=== PATIENT | male | born 1970 | race Caucasian/White ===

== ENCOUNTER → 2019-08-10 | Outpatient (CLI) | payer OTHER ==
[2019-08-10 13:49] VITALS: BP 108/72; PULSE 64; RESP 16
--- NOTE | 2019-08-10 14:33 | P.PAINCN ---
History of Present Illness - Reason for Consult Consult date: 08/10/19 - History of Present Illness This is the initial consultation visit for this 48 years old male with a chronic history of severe right sided neck pain with radiation to the right upper extremity started 1 year ago without any initiating event, he reported that the pain started in his right humerus area and radiated towards his right shoulder and into with his right neck, and he reported that the intensity of the pain fluctuates during the daytime, and is increased with any activity, have any shoulder movement to the pain, the symptoms increased with any use of his right upper extremity, patient tried multiple medications without any benefit,, he tried Cymbalta , Lyrica Motrin and ,Aleve, naproxen ,and prednisone [place], none of the medication helped his pain, he tried physical therapy Practice without any benefit, He denies any motor or sensory deficit, he denies any fever or night sweats, he denies any change in bowel movement or urination Past Medical History History of Any Multi-Drug Resistant Organisms: None Reported Past Surgical History: Hernia Repair Additional Past Surgical History / Comment(s): Finger surgery - reattachment Past Anesthesia/Blood Transfusion Reactions: No Reported Reaction Smoking Status: Current every day smoker Medications and Allergies Home Medications Medication Instructions Recorded Confirmed Type No Known Home Medications 08/10/19 08/10/19 History Allergies Allergy/AdvReac Type Severity Reaction Status Date / Time Penicillins Allergy Anaphylaxis Verified 08/10/19 13:26 Physical Exam Vitals: Vital Signs Pulse Resp BP Pulse Ox 08/10/19 13:55 64 16 108/72 99 08/10/19 13:27 64 16 108/72 99 Intake and Output 08/09/19 08/10/19 08/10/19 22:59 06:59 14:59 Other: Weight 79.379 kg REVIEW OF ORGAN SYSTEMS: CONSTITUTIONAL: No fevers or chills. No recent weight loss. EYES: denies troubles with vision. HEENT: No difficulties with hearing. No nosebleeds. No difficulty swallowing. RESPIRATORY: Denies any troubles with breathing or dyspnea on exertion. CARDIOVASCULAR: Denies any chest pain, palpitations, or recent heart attacks. GASTROINTESTINAL: Denies fatty food intolerance. Has change in bowel habits and gas bloat. GENITOURINARY: Denies any blood in urine. Has increased urinary frequency. NEUROLOGICAL: + numbness and tingling along the distal extremities. No seizure disorders or headaches. MUSCULOSKELETAL: Has neck pain. Right upper extremity pain SKIN:no skin cancer. No rash. PSYCHIATRIC: Denies current depression or suicidal thoughts. ENDOCRINE: Denies current thyroid disorders. Denies any blood sugar glucose intolerance. HEME/LYMPHATIC: Denies any lumps and bumps around the neck. History of deep venous thrombosis. ALLERGY/IMMUNOLOGY: No immunoglobulin therapy. No immune deficiencies. BREAST: Denies current breast lumps, pain or nipple discharge. Physical Examinations : Constitutiona : Cooperative , not in acute distress . HEENT : nech : supple , no Lymphadenopathy , normal thyroid size . : eyes no ptosis , no icterus, no photophobia . : ENT normal of hearing , normal oropharynx , no Thrush . Respiratory : Chest clear to auscultations Bilaterally , no wheezing , no Rhonchi . Cardiovascula : regular rate and rhythem , S1 , S2 , no S3 , no S4. Gastrointestina : abdomen soft no tenderness , bowel sounds , no organomegally . Genitourinary : [place] . neurologic : Cranial nerve II to XII intact , no focal neurological deffecit . psychatric : alert , oriented X 3 , appropriate affect , intact judgment and insight . Lymphatic : no Lymphadenopathy . musculoskeltal : Cervical Spine motor stregnth in the deltoid and biceps, normal right side , normal Left side motor stregnth biceps and the wrist extensors normal right side ,normal left side . motor stregnth in the triceps muscle . normal Right side , normal Left side deep tendon reflexes= normal at the biceps , normal at Brachioradialis , normal at triceps. cervical facet loading test: Positive Bilaterally Tenderness over the cervical paravertebral muscles Neck distraction test= positive on the right side Ruddy sign= positive on the right side External rotation of the right shoulder Lumber spine moter stegnth lower extremities ,thigh and legs 5/5 Right side , 5/5 Left side Results Comments: MRI of the cervical spine done at some MRI= C5 6 facet hypertrophic changes and neuroforaminal narrowing at C6 7 there is disc osteophyte complex with ventral thecal sac effacement and there is facet joint hypertrophy and there is right neural foraminal narrowing Assessment and Plan Plan: Assessment and plan=1-cervical radiculopathy. 2-cervical foraminal stenosis. 3-cervical spondylosis with cervical facet arthropathy. 4-right shoulder arthralgia. Patient will be good candidate to have cervical epidural steroid injection at C7-T1 (right paramedian approach ) Procedure risk and benefits and alternatives discussed with the patient he agreed with proceeding Time with Patient: Greater than 30 PQRS Measure Charge Sheet Measure #130: Documentation of Current Meds in Medical Chart: Patient's medications documented in chart Measure #226: Tobacco Use: Screen & Cessation Intervention: Pt screened for tobacco use AND intervention given Measure #111: Pneumonia Vaccination: Pneumococcal vaccine NOT administered or previously given Measure #47: Advance Care Plan: Advance care planning discussed & documented, pt chose/unable to give Measure #412: Opioid Treatment Agreement: No documentation of signed opioid treatment agreement Measure #408: Opioid Therapy Follow-up Evaluation: Patient had NO f/u eval minimum every 3 months during opioid therapy Measure #317: Preventitive Care & Scrn High Bld Press & F/U: Normal blood pressure, f/u not required Measure #128: Body Mass Index (BMI) Screening & Follow-up: BMI documented ABOVE normal parameters - f/u documented Measure #131: Pain Assessment & Follow-up: Pain positive & plan documented, Follow-up scheduled Measure #431: Unhealthy Alcohol Use Preventative Care & Scrn: Patient not identified as an unhealthy alcohol user PQRS Narrative: Smoking Status Current every day smoker Blood Pressure 108/72 Pain Intensity [Right 6 Posterior Neck] Pain Intensity [Right Shoulder 3 ] Scale Used Numeric (1 - 10) Hx Alcohol Use (MH) No Home Medications: Ambulatory Orders No Known Home Medications 08/10/19
== END | disposition home or self-care (01) ==
LOC: PNWHC3 13:17
PROVIDERS: ATTEND Specialist
DX: M48.02 Spinal stenosis, cervical region (principal); M47.22 Other spondylosis with radiculopathy, cervical region; M46.92 Unspecified inflammatory spondylopathy, cervical region; M25.511 Pain in right shoulder; F17.200 Nicotine dependence, unspecified, uncomplicated; Z88.0 Allergy status to penicillin
CPT/HCPCS: 99211

== ENCOUNTER 2019-08-17 09:37 | Day surgery (SDC) | payer OTHER ==
[2019-08-13 15:00] VITALS: BMI 26.6
[~2019-08-17 09:37] MED LIST: LACTATED RINGERS 1,000 ML IV SCH
[2019-08-17 11:00] VITALS: TEMP 98.3
[2019-08-17] MEDS ORDERED: LIDOCAINE 1% 20 ML VIAL (10MG/ML) FOR IV START INTRADERMA ONE (11:04)
[2019-08-17] MEDS ORDERED: IOPAMIDOL M200 10 ML VIAL ONE (11:44)
[2019-08-17] MEDS ORDERED: fentaNYL (PF) 50 MCG/ML 2 ML AMP ONE (11:44)
[2019-08-17] MEDS ORDERED: DEXAMETHASONE SOD PHOSPHATE 10 MG/ML 1 ML VIAL ONE (11:44)
[2019-08-17] MEDS ORDERED: MIDAZOLAM 2 MG/2 ML VIAL ONE (11:44)
--- NOTE | 2019-08-17 11:55 | P.PCN ---
Date of Procedure: 08/17/19 Procedure(s) Performed: Diagnosis: Cervical radiculopathy Cervical degenerative disc disease POSTOPERATIVE DIAGNOSIS: Diagnoses: Cervical radiculopathy Cervical degenerative disc disease PROCEDURE Cervical Epidural steroid injection under fluoroscopic guidance at the C7-T1 interspace using right paramedian approach Cervical epidurogram ANESTHESIA: Local with 1% lidocaine 3 ml and IV sedation with Versed and fentanyl, sedation time 11 minutes Fluoroscopy was used for the procedure and images were saved in the radiology portion of the chart. EBL: Minimal PROCEDURE INDICATION: The patient presents with cervical radicular symptoms unresponsive to conservative treatment. This is the first cervical epidural steroid injection. PROCEDURE DESCRIPTION / TECHNIQUE: The patient was seen and identified in the preoperative area. Risks, benefits, complications including but not limited to infections ,bleeding ,allergic reaction to the medications ,nerve damage and incomplete pain relief, and alternatives were discussed with the patient. The patient agreed to proceed with the procedure and signed the consent. IV was started, and vital signs were stable. Patient was taken to the OR and time out was completed. The patient was placed in the prone position on procedure table and a pillow was placed under the chest area. The cervical area was prepped and draped in the usual sterile fashion. Conscious sedation was used during the procedure to decrease patients anxiety. Vital signs was monitored during the entire procedure. Using anterior-posterior fluoroscopy, the C7-T1 interlaminar space was identified and the skin over this site was marked and then infiltrated with 1% lidocaine subcutaneously. Subsequently, a 20-gauge Tuohy epidural needle was inserted and advanced toward the epidural space using the loss of resistance technique and guided by AP and 50 oblique fluoroscopy. The correct needle position in the epidural space was verified. After negative aspiration for blood and CSF and in the absence of paresthesias, Isovue 200 2 mL's was injected under live fluoroscopy with good epidural spread. After negative aspiration, a 5 ml mixture containing 10 mg of dexamethasone, 3 mL of preservative free normal saline and 1 mL of 1% lidocaine was injected. Needle was withdrawn intact, skin was cleansed, and bandages were applied. COMPLICATIONS: None DISPOSITION / PLANS: The patient was placed in a supine position and transferred to the recovery area in a stable condition for observation. There was no evidence of lower extremity motor or sensory deficit after the procedure. Patient was discharged from the recovery room after meeting discharge criteria. Home discharge instructions were given to the patient by the staff. The patient will be scheduled a repeat procedure in 2-4 weeks.
[2019-08-17] MEDS ORDERED: LACTATED RINGERS 1,000 ML IV ONE (12:02)
[2019-08-17] MEDS ORDERED: IV FLUID CONTINUATION 1,000 ML IV ONE (12:02)
--- NOTE | 2019-08-17 12:20 | FL ---
EXAMINATION TYPE: FL guided pain mgmt statistic DATE OF EXAM: 08/17/2019 HISTORY: Pain 7 SEC FL TIME USED CERVICAL EPI
[2019-08-17 12:22] VITALS: BP 100/67; PULSE 49; RESP 14
== END 2019-08-17 12:34 | disposition home or self-care (01) ==
LOC: ORPAIN 09:37
PROVIDERS: ATTEND Anesthesiology
DX: M50.13 Cervical disc disorder with radiculopathy, cervicothoracic region (principal); M47.22 Other spondylosis with radiculopathy, cervical region; M48.03 Spinal stenosis, cervicothoracic region; F17.200 Nicotine dependence, unspecified, uncomplicated; Z98.890 Other specified postprocedural states; Z88.0 Allergy status to penicillin
CPT/HCPCS: 62321; 99152

== ENCOUNTER 2019-08-31 09:17 | Day surgery (SDC) | payer OTHER ==
[2019-08-27 16:12] VITALS: BMI 25.8
[~2019-08-31 09:17] MED LIST changes: +DEXAMETHASONE SOD PHOSPHATE 10 MG/ML 1 ML VIAL ONE; +IOPAMIDOL M200 10 ML VIAL ONE; +MIDAZOLAM 2 MG/2 ML VIAL ONE; +fentaNYL (PF) 50 MCG/ML 2 ML AMP ONE
[2019-08-31 09:37] VITALS: RESP 16; TEMP 97.2
--- NOTE | 2019-08-31 10:07 | P.PCN ---
Date of Procedure: 08/31/19 Procedure(s) Performed: . PROCEDURE 1. Cervical epidural steroid injection under fluoroscopic guidance, C7-T1 (fluoroscopy images available in the radiology department ) 2. Cervical epidurogram. PREOPERATIVE DIAGNOSIS: 1- Cervical Degenerative Disc Diseases 2-cervical spondylosis with cervical Facet arthropathy without myelopathy POSTOPERATIVE DIAGNOSIS: : 1- Cervical Degenerative Disc Diseases , 2-cervical spondylosis with cervical Facet arthropathy without myelopathy ANESTHESIA: Local anesthesia with lidocaine 1 % , and moderate sedation, with Versed 2 mg and Fentanyl 50 mcg. EBL 0 PROCEDURE INDICATION: The patient with neck pain and radiculitis unresponsive to conservative treatment consents for procedure. PROCEDURE DESCRIPTION / TECHNIQUE: The patient was seen and identified in the preoperative area. Risks, benefits, complications, including but not limited to infections ,bleeding , allergic reactions to the medications ,and not complete pain releife, and alternatives were discussed with the patient, the patient agreed to proceed with the procedure and signed the consent. Patient was taken to the OR and time out was completed. The patient was placed in the prone position on the procedure table. A pillow was placed under the patients chest to increase the cervical interlaminar space. The cervical area was prepped and draped in the usual sterile fashion. Vital signs were closely monitored during the procedure. Conscious sedation was used during the procedure to decrease patients anxiety. Using anterior-posterior fluoroscopy, the C7-T1 interlaminar space was identified and the skin over this site was marked and then infiltrated with 1% lidocaine subcutaneously. Subsequently, a 20-gauge 3-1/2-inch Tuohy epidural needle was inserted and advanced toward the epidural space by means of the ``hanging-drop technique and guided by AP and lateral fluoroscopy. The correct needle position in the epidural space was verified with the injection of 2 mL of the water soluble contrast dye Isovue-200 and observing an excellent epidurogram with the epidural spread of the dye, after negative aspiration for blood and CSF and in the absence of paresthesias. Again after negative aspiration, mixture containing 20 mg Dexamethasone and 2 ml of preservative-free normal saline injected and a washout of epidurogram was seen. Needle was withdrawn intact, skin was cleansed, and bandages were applied. Complications= none. Disposition= patient was placed in supine position and transferred to the recovery room area in stable condition and there was no evidence of upper or lower extremity motor or sensory deficit after the procedure patient was discharged from recovery room after discharge criteria met and home discharge instructions was given by the staff and patient will follow with the pain clinic in 2-4 weeks
[2019-08-31] MEDS ORDERED: IV FLUID CONTINUATION 1,000 ML IV ONE (10:11)
--- NOTE | 2019-08-31 10:25 | FL ---
EXAMINATION TYPE: FL guided pain mgmt statistic DATE OF EXAM: 08/31/2019 CLINICAL HISTORY: Neck pain. TECHNIQUE: Fluoroscopy. COMPARISON: None. FINDINGS: Fluoroscopic guidance was provided during pain relief procedure performed by Dr. Bradley . A total of 2 seconds of fluoroscopic time was utilized during the procedure and two spot images ar e acquired. Images acquired shows needle localization of the cervical thoracic junction. IMPRESSION: As Above.
[2019-08-31 10:28] VITALS: BP 109/66; PULSE 53
== END 2019-08-31 10:43 | disposition home or self-care (01) ==
LOC: ORPAIN 09:17
PROVIDERS: ATTEND Specialist
DX: M50.10 Cervical disc disorder with radiculopathy, unspecified cervical region (principal); M47.22 Other spondylosis with radiculopathy, cervical region; F41.9 Anxiety disorder, unspecified; Z88.0 Allergy status to penicillin
CPT/HCPCS: 62321; 99152; J2250; J1100; J3010; Q9966

== ENCOUNTER → 2019-09-24 | Day surgery (SDC) | payer OTHER ==
[2019-09-23 11:02] VITALS: BMI 25.2
[~2019-09-24] MED LIST changes: -DEXAMETHASONE SOD PHOSPHATE 10 MG/ML 1 ML VIAL ONE; -IOPAMIDOL M200 10 ML VIAL ONE; +IV FLUID CONTINUATION 1,000 ML IV ONE; +LACTATED RINGERS 1,000 ML IV ONE; +LIDOCAINE 1% 20 ML VIAL (10MG/ML) FOR IV START INTRADERMA ONE; +ROPIVACAINE 5MG/ML 20ML VIAL ONE; +methylPREDNISolone ACETATE 40 MG/ML 1 ML VIAL ONE
[2019-09-24 09:28] VITALS: TEMP 97.5
--- NOTE | 2019-09-24 10:56 | P.PCN ---
Date of Procedure: 09/24/19 Procedure(s) Performed: PREOPERATIVE DIAGNOSIS: 1-Cervical Spondylosis with Facet Arthropathy.without myelopathy. 2-cervical foraminal stenosis. 3-cervical radiculopathy. 4-right shoulder arthralgia POSTOPERATIVE DIAGNOSIS: Same as preop diagnosis. PROCEDURES: Diagnostic Right C3 , C4 , C5 , C6 medial branch blocks, with fluoroscopic guidance (fluoroscopy images available in radiology department ) ( to target the facet joint at right C3-4 ,C4- 5 , C5- 6 ) ANESTHESIA: Local with 1% lidocaine; moderate sedation with Versed. 2 mg , and fentanyl 100 micrograms EBL: Minimal PROCEDURE INDICATION: The patient with neck pain secondary to cervical a rthropathy unresponsive to more conservative treatments. PROCEDURE DESCRIPTION / TECHNIQUE: The patient was seen and identified in the preoperative area. Risks, benefits, complications, and alternatives were discussed with the patient, the patient agreed to proceed with the procedure and signed the consent. IV was started. Vital signs remained stable throughout the procedure. Patient was taken to the OR and time out was completed. The patient was placed in the prone position on the procedure table. A pillow was placed under the patients chest to increase the cervical interlaminar space. The cervical area was prepped and draped in the usual sterile fashion. Critical pause was taken. Vital signs were closely monitored during the procedure. Conscious sedation was used during the procedure to decrease patients anxiety. Using cross-table lateral fluoroscopy, the centroid of the trapezoid of right C3, C4 , C5 and C6, was identified, marked, and localized with 1% lidocaine 1 ml at each level for skin and Sub Q infiltrations . Subsequently, a 22 G 4 spinal needle was advanced guided by fluoroscopy to the centroid of the trapezoid of Right C3, C4 , C5, C6 . [place] tip position was confirmed at the centroid of the trapezoids of Right C3 , C4 , C5 ,C6 with anteroposterior fluoroscopy. Subsequently, 2 ml of preservative-free Ropivacaine 0.5% mixed with Depo-Medrol 40 mg and half ml of the mixture was injected after negative aspiration for blood and CSF. [place] was then removed intact . COMPLICATIONS: No acute complications. COMMENTS: I was not able to visualize C7 vertebra DISPOSITION / PLANS: The patient was placed in a supine position and transferred to the recovery area in a stable condition for observation and was discharged from the recovery room after meeting discharge criteria. Home discharge instructions given to the patient by the staff. The patient was reexamined prior to discharge. The patient will schedule a follow up in the clinic in 2-4 weeks.
[2019-09-24 11:14] VITALS: RESP 16
[2019-09-24 11:19] VITALS: BP 114/74; PULSE 50
--- NOTE | 2019-09-24 12:14 | FL ---
Fluoroscopy INDICATION: Pain FINDINGS: Fluoroscopy time: 7 seconds. Images obtained: 2. IMPRESSIONS: 1. Documentation of fluoroscopy.
== END ==
LOC: ORPAIN 08:45
PROVIDERS: ATTEND Specialist
DX: M47.22 Other spondylosis with radiculopathy, cervical region (principal); M48.02 Spinal stenosis, cervical region; M25.511 Pain in right shoulder; M50.10 Cervical disc disorder with radiculopathy, unspecified cervical region; Z88.0 Allergy status to penicillin
CPT/HCPCS: 64490; 64491; 64492; J2250; J1030; J3010; J2795; 99152

== ENCOUNTER → 2019-10-08 | Day surgery (SDC) | payer OTHER ==
[~2019-10-08] MED LIST changes: -LACTATED RINGERS 1,000 ML IV ONE; +LIDOCAINE 1% (10MG/ML) FOR IV START INTRADERMA ONE; -LIDOCAINE 1% 20 ML VIAL (10MG/ML) FOR IV START INTRADERMA ONE
[2019-10-08 08:39] VITALS: RESP 16; TEMP 97.5
--- NOTE | 2019-10-08 09:05 | P.GSHP ---
History of Present Illness H&P Date: 10/08/19 This is 48 years old male, with a history of severe neck pain his diagnosis was cervical radiculopathy cervical spondylosis with cervical facet arthropathy and cervical foraminal stenosis, he is here today to have right side medial branch block under fluoroscopy guidance Past Medical History Past Medical History: Sleep Apnea/CPAP/BIPAP Additional Past Medical History / Comment(s): WAITING FOR CPAP. Hx kidney stones Jun 2019. History of Any Multi-Drug Resistant Organisms: None Reported Past Surgical History: Hernia Repair Additional Past Surgical History / Comment(s): Finger surgery - reattachment. Past Anesthesia/Blood Transfusion Reactions: No Reported Reaction Past Psychological History: No Psychological Hx Reported Smoking Status: Current every day smoker Past Alcohol Use History: None Reported Additional Past Alcohol Use History / Comment(s): Has been smoking since 16 yrs old, LESS THAN 1PPD. Past Drug Use History: None Reported - Past Family History Mother Family Medical History: Cancer Additional Family Medical History / Comment(s): at age 53. Medications and Allergies Home Medications Medication Instructions Recorded Confirmed Type No Known Home Medications 08/10/19 10/08/19 History Allergies Allergy/AdvReac Type Severity Reaction Status Date / Time Penicillins Allergy Anaphylaxis Verified 10/08/19 08:29 Surgical - Exam Vital Signs Temp Pulse Resp BP Pulse Ox 97.5 F L 49 L 16 109/66 98 10/08/19 08:37 10/08/19 08:37 10/08/19 08:37 10/08/19 08:37 10/08/19 08:37 Physical exam: Vitals: Reviewed in EMR GENERAL: Well appearing, in no acute distress PSYCH: Mood and affect is appropriate. Awake, alert, and oriented SKIN: Skin color, texture, turgor normal, no rashes or lesions HEENT: Normocephalic, atraumatic. EOM intact CV: No pedal edema RESP: Respirations are unlabored, no audible wheezing GI: Abdomen non-distended MUSCULOSKELETAL: Bilateral upper and lower extremity strength is normal and symmetric. No atrophy or tone abnormalities are noted. Neck: tenderness to palpation over the right cervical paraspinous muscles and right trapezius. Spurling negative, Falk's sign negative. pain with neck fle xion, extension, and lateral flexion. No obvious deformity or signs of trauma. Normal cervical lordotic curve. cervical spine range of motion is pain limited. Cervical facet loading positive. Lumbar spine: Straight leg raising in the sitting position is negative for radicular pain. No pain to palpation over the lumbar spine and paraspinous muscles. Negative for pain with facet loading and back extension/rotation. Normal range of motion without pain reproduction Buttocks: No pain to palpation over the PSIS, sacroiliac joint maneuvers are negative for pain. Extremities: right shoulder: Limited shoulder abduction and flexion. Tenderness to palpation along anterior and posterior joint line. Lu sign is positive. Gait: Gait is normal NEUR: Bilateral upper and lower extremity coordination and muscle stretch reflexes are physiologic and symmetric. Negative clonus bilaterally. No loss of sensation is noted. Assessment and Plan Plan: Assessment and plan=1-cervical radiculopathy. 2-cervical foraminal stenosis. 3-cervical spondylosis with cervical facet arthropathy. 4-right shoulder arthralgia. Patient today to have second diagnostic medial branch block cervical area right side C3 , C4, C5, C6 under fluoroscopy guidance Time with Patient: Less than 30
--- NOTE | 2019-10-08 09:32 | P.PCN ---
Date of Procedure: 10/08/19 Procedure(s) Performed: PREOPERATIVE DIAGNOSIS: 1-Cervical Spondylosis with Facet Arthropathy.without myelopathy. 2-cervical foraminal stenosis. 3-cervical radiculopathy. 4-right shoulder arthralgia POSTOPERATIVE DIAGNOSIS: Same as preop diagnosis. PROCEDURES: Diagnostic Right C3 , C4 , C5 , C6 medial branch blocks, with fluoroscopic guidance (fluoroscopy images available in radiology department ) ( to target the facet joint at right C3-4 ,C4- 5 , C5- 6 ) # 2nd ANESTHESIA: Local with 1% lidocaine; moderate sedation with Versed. 2 mg , and fentanyl 50 micrograms EBL: Minimal PROCEDURE INDICATION: The patient with neck pain secondary to cervical arthropathy unresponsive to more conservative treatments. PROCEDURE DESCRIPTION / TECHNIQUE: The patient was seen and identified in the preoperative area. Risks, benefits, complications, and alternatives were discussed with the patient, the patient agreed to proceed with the procedure and signed the consent. IV was started. Vital signs remained stable throughout the procedure. Patient was taken to the OR and time out was completed. The patient was placed in the Supine position on the procedure table. A pillow was placed under the patients chest to increase the cervical interlaminar space. The cervical area was prepped and draped in the usual sterile fashion. Critical pause was taken. Vital signs were closely monitored during the procedure. Conscious sedation was used during the procedure to decrease patients anxiety. Using cross-table lateral fluoroscopy, the centroid of the trapezoid of right C3, C4 , C5 and C6, was identified, marked, and localized with 1% lidocaine 1 ml at each level for skin and Sub Q infiltrations . Subsequently, a 25 G 4 spinal needle was advanced guided by fluoroscopy to the centroid of the trapezoid of Right C3, C4 , C5, C6 . [place] tip position was confirmed at the centroid of the trapezoids of Right C3 , C4 , C5 ,C6 with anteroposterior fluoroscopy. Subsequently, 2 ml of preservative-free Ropivacaine 0.5% mixed with Depo-Medrol 40 mg and half ml of the mixture was injected after negative aspiration for blood and CSF. [place] was then removed intact . COMPLICATIONS: No acute complications. COMMENTS: I was not able to visualize C7 vertebra DISPOSITION / PLANS: The patient was placed in a supine position and transferred to the recovery area in a stable condition for observation and was discharged from the recovery room after meeting discharge criteria. Home discharge instructions given to the patient by the staff. The patient was reexamined prior to discharge. The patient will schedule a follow up in the clinic in 2-4 weeks.
--- NOTE | 2019-10-08 09:54 | FL ---
EXAMINATION TYPE: FL guided pain mgmt statistic DATE OF EXAM: 10/08/2019 CLINICAL HISTORY: Neck pain. TECHNIQUE: Fluoroscopy. COMPARISON: None. FINDINGS: Fluoroscopic guidance was provided during pain relief procedure performed by Dr. Bradley . A total of 28 seconds of fluoroscopic time was utilized during the procedure and two spot images a re acquired. Images acquired shows needle localization of the cervical spine. IMPRESSION: As Above.
[2019-10-08 10:01] VITALS: BP 112/60; PULSE 48
== END ==
LOC: ORPAIN 07:59
PROVIDERS: ATTEND Specialist
DX: M47.22 Other spondylosis with radiculopathy, cervical region (principal); M48.02 Spinal stenosis, cervical region; Z87.442 Personal history of urinary calculi; Z88.0 Allergy status to penicillin; M25.511 Pain in right shoulder; G47.30 Sleep apnea, unspecified; F17.210 Nicotine dependence, cigarettes, uncomplicated; Z99.89 Dependence on other enabling machines and devices; Z98.890 Other specified postprocedural states; Z80.9 Family history of malignant neoplasm, unspecified
CPT/HCPCS: 64490; 64491; 64492; J2250; J1030; J3010; J2795; 99152

== ENCOUNTER → 2020-06-16 | Outpatient (CLI) | payer OTHER ==
[2020-06-16 12:40] VITALS: BP 120/72; PULSE 54; RESP 18; TEMP 98.7
--- NOTE | 2020-06-16 13:01 | P.PAINPG ---
Subjective Progress Note Date: 06/16/20 This is a follow-up visit for this 48 year old male with a chronic history of severe right sided neck pain diagnosed with cervical radiculopathy, cervical foraminal stenosis, cervical spondylosis. He underwent cervical epidural steroid injection at C7-T1 on 08/25/2019 and 08/31/2019. At about 12 hours of relief in these procedures did not provide relief beyond that. Most recently had bilateral C4 C5 C6 medial branch blocks 2. We also ordered an MRI for low back pain. He is here for follow-up today. Patient visit the cervical injections did not provide any relief for him. He is still having right-sided neck pain rated as a 5-10 radiating into the trapezius which occasional shooting pain into the right upper extremity. Today his biggest concern is his low back which radiates to bilateral groins as well as the right medial leg, and calf. The pain rarely does go past the knee. Because of history of bilateral inguinal hernia surgeries in the context of his bilateral groin pain. Currently only takes Cymbalta for pain medication. Notes that he has taken multiple medications the past including opioids, muscle relaxers, neuropathic agents which helped. he denies numbness and tingling in lower extremities, denies weakness in lower extremities. Review of systems is negative for chest pain, shortness of breath, new onset weakness, numbness/tingling, abdominal pain, malaise, fever, night sweats, chills, homicidal or suicidal ideation, or bowel or bladder incontinence. Physical Exam Physical exam: Vitals: Reviewed in EMR GENERAL: Well appearing, in no acute distress PSYCH: Mood and affect is appropriate. Awake, alert, and oriented SKIN: Skin color, texture, turgor normal, no rashes or lesions HEENT: Normocephalic, atraumatic. EOM intact CV: No pedal edema RESP: Respirations are unlabored, no audible wheezing GI: Abdomen non-distended MUSCULOSKELETAL: Bilateral upper and lower extremity strength is normal and symmetric. No atrophy or tone abnormalities are noted. Neck: tenderness to palpation over the right cervical paraspinous muscles and right trapezius. Spurling negative, Falk's sign negative. pain with neck flexion, extension, and lateral flexion. No obvious deformity or signs of trauma. Normal cervical lordotic curve. cervical spine range of motion is pain limited. Cervical facet loading positive. Lumbar spine: Straight leg raising in the sitting position is negative for radicular pain. No pain to palpation over the lumbar spine and paraspinous muscles. Positive for pain with facet loading and back extension/rotation. Normal range of motion without pain reproduction Buttocks: No pain to palpation over the PSIS, sacroiliac joint maneuvers are negative for pain. Extremities: right shoulder: Limited shoulder abduction and flexion. Tenderness to palpation along anterior and posterior joint line. Lu sign is positive. Gait: Gait is normal NEUR: Bilateral upper and lower extremity coordination and muscle stretch reflexes are physiologic and symmetric. Negative clonus bilaterally. No loss of sensation is noted. Results Comments: MRI of the cervical spine done at [facility] MRI= C5 6 facet hypertrophic changes and neuroforaminal narrowing at C6 7 there is disc osteophyte complex with ventral thecal sac effacement and there is facet joint hypertrophy and there is right neural foraminal narrowing MRI lumbar spine: L5-S1 there is a mild disc bulge with protrusion causing minimal effacement of thecal sac. There is mild facet arthropathy at L2-L3, L4- L5, L5-S1. Assessment and Plan Plan: Assessment and plan=1-cervical radiculopathy. 2-cervical foraminal stenosis. 3-cervical spondylosis with cervical facet arthropathy. 4-right shoulder arthralgia. 5- low back pain radiating to right groin and right lower extremity I had a lengthy discussion with patient regarding his neck and shoulder pain, his pain is likely multifactorial, arising from cervical spondylosis and right shoulder arthritis. He expressed understanding. We will schedule him for a right-sided lumbar medial branch block at L2-L3, L3- L4, L4-L5. I'm unclear if his groin pain is arising from this region, it is possible that given his surgeries in the past that he has some entrapment of the ilioinguinal nerve. We will see if these nerve blocks help with his back and groin pain, however we may have to pursue ilioinguinal nerve injection the future specifically for his groin pain. In the future, he will likely benefit from right shoulder intra-articular steroid injection. Regards to his neck, I encouraged him to see his surgeon given that we have tried multiple interventions with no help. I counseled him for 3 minutes on the importance of smoking cessation as it pertains to overall health and chronic pain. Follow-up: CHRIS[facility] Measure Charge Sheet Measure #130: Documentation of Current Meds in Medical Chart: Patient's medications documented in chart Measure #226: Tobacco Use: Screen & Cessation Intervention: Pt screened for tobacco use AND intervention given Measure #111: Pneumonia Vaccination: Pneumococcal vaccine NOT administered or previously given Measure #47: Advance Care Plan: Advance care planning discussed & documented, pt chose/unable to give Measure #412: Opioid Treatment Agreement: No documentation of signed opioid treatment agreement Measure #408: Opioid Therapy Follow-up Evaluation: Patient had NO f/u eval minimum every 3 months during opioid therapy Measure #317: Preventitive Care & Scrn High Bld Press & F/U: Normal blood pressure, f/u not required Measure #128: Body Mass Index (BMI) Screening & Follow-up: BMI documented within normal parameters Measure #131: Pain Assessment & Follow-up: Pain positive & plan documented, Follow-up scheduled Measure #431: Unhealthy Alcohol Use Preventative Care & Scrn: Patient not identified as an unhealthy alcohol user PQRS Measure Charge Sheet PQRS Narrative: Smoking Status Current every day smoker Hx Alcohol Use (MH) No Home Medications: Ambulatory Orders No Known Home Medications 08/10/19 Controlled Substance Measures - Controlled Substance Measures Is patient prescribed a controlled substance at discharge?: No PQRS Measure Charge Sheet PQRS Narrative: Smoking Status Current every day smoker Hx Alcohol Use (MH) No Home Medications: Ambulatory Orders Cymbalta (Unknown Dose) 1 tab PO HS 06/15/20 Pregabalin [Lyrica] 100 mg PO TID 06/15/20 Controlled Substance Measures - Controlled Substance Measures Is patient prescribed a controlled substance at discharge?: No
== END | disposition home or self-care (01) ==
LOC: PNWHC3 12:17
PROVIDERS: ATTEND Anesthesiology
DX: M48.02 Spinal stenosis, cervical region (principal); M47.22 Other spondylosis with radiculopathy, cervical region; M25.511 Pain in right shoulder; F17.200 Nicotine dependence, unspecified, uncomplicated; Z79.899 Other long term (current) drug therapy
CPT/HCPCS: 99211

== ENCOUNTER → 2020-07-08 | Day surgery (SDC) | payer OTHER ==
[2020-07-07 09:32] VITALS: BMI 25.0
[~2020-07-08] MED LIST changes: -IV FLUID CONTINUATION 1,000 ML IV ONE; +IV FLUID CONTINUATION 200 ML IV ONE; -LACTATED RINGERS 1,000 ML IV SCH; +TRIAMCINOLONE ACETONIDE 40 MG/ML 1 ML VIAL ONE
[2020-07-08 10:56] VITALS: TEMP 97.2
[2020-07-08] MEDS: LACTATED RINGERS 1,000 ML IV SCH ×2 (10:56→12:33)
--- NOTE | 2020-07-08 12:58 | P.PCN ---
Date of Procedure: 07/08/20 Procedure(s) Performed: PREOPERATIVE DIAGNOSIS : 1- Lumbar spondylosis with Facet Arthropathy without myelopathy . POSTOPERATIVE DIAGNOSIS: 1- Lumbar spondylosis with Facet Arthropathy without myelopathy . PROCEDURE: Diagnostic bilateral L3 , L4 , and L5 medial branch block under fluoroscopy guidance(fluoroscopy images available in the radiology Department ) ( To target the facet joint between L4-5 , and L5-S1 ) (Patient was scheduled to have diagnostic medial branch block on the right side but in the preop holding area patient reported that he had pain on both sides For this reason we get insurance approval to do bilateral medial branch block and it was removed and we proceeded with bilateral diagnostic medial branch block ANESTHESIA:, Monitored anesthesia care provided by anesthesia department. EBL: Minimal COMPLICATION: None PROCEDURE INDICATION: Chronic low back pain secondary to Facet arthropathy unresponsive to conservative treatment. PROCEDURE DESCRIPTION: the patient was seen and identified in the preop holding area , risks and benefits and possible complications of the procedure and alternative were discussed with the patient, and the patient agreed to proceed with the procedure and signed the consent and vital signs monitored during the procedure and fluoroscopy was used to maximize the benefit and accuracy of the needle placement, and sedation was given to decrease patient anxiety, patient was taken to the procedure room and placed in prone position vital signs monitored in the back prepped with chlorhexidine X3 then under strict sterile technique using a right oblique fluoroscopy ,the junction of the transverse process and the superior articulating process of the right L3 , L4 , and L5 vertebra which corresponding to the fluoroscopy image of the eye of the Clarence dog on the block side for the medial branches and subsequently , after local infiltration of skin and subcu tissuies with Ropivacaine 0.5 % , one mL at each level ,then 22-gauge Quincke-type needles , 3 needle was used , each one of them placed at the junction of the base of the transverse process and the superior articular process at the appropriate level, and the needle was advanced until the periosteum contacted, needle placement confirmed with AP oblique and lateral view and after appropriate needle placement confirmed, and after negative aspiration for heme and CSF and there was no paresthesia 1-1/2 mL of Ropivacaine 0.5% mixed with 20 mg Depo-Medrol , then half mL injected at each level after negative aspiration the needle subsequently removed and the same procedure repeated for the left side at left side at L3 , L4 and L5 levels. At the end of the procedure and the needles removed and a bandage applied after the skin was cleaned the cleaning solution patient taken to recovery room in stable condition and monitors in the recovery room for 20-30 minutes and discharged home in stable condition after discharge criteria met and patient will follow up with the pain clinic in 2-4 weeks
[2020-07-08 13:07] VITALS: PULSE 50
--- NOTE | 2020-07-08 13:10 | FL ---
Fluoroscopy INDICATION: Pain FINDINGS: Fluoroscopy time: 6 seconds. Images obtained: 3. IMPRESSIONS: 1. Documentation of fluoroscopy.
[2020-07-08 13:16] VITALS: BP 103/69; RESP 16
== END ==
LOC: ORPAIN 10:30
PROVIDERS: ATTEND Specialist
DX: G89.29 Other chronic pain (principal); M47.816 Spondylosis without myelopathy or radiculopathy, lumbar region; F17.200 Nicotine dependence, unspecified, uncomplicated; Z88.0 Allergy status to penicillin
CPT/HCPCS: 64493; 64494; J2250; J3301; J3010; J2795

== ENCOUNTER → 2020-08-12 | Day surgery (SDC) | payer OTHER ==
[2020-08-08 16:04] VITALS: BMI 25.0
[~2020-08-12] MED LIST changes: -IV FLUID CONTINUATION 200 ML IV ONE; +LACTATED RINGERS 1,000 ML IV SCH; -TRIAMCINOLONE ACETONIDE 40 MG/ML 1 ML VIAL ONE
[2020-08-12 07:59] VITALS: TEMP 98.3
--- NOTE | 2020-08-12 08:54 | P.PCN ---
Date of Procedure: 08/12/20 Procedure(s) Performed: PREOPERATIVE DIAGNOSIS : 1- Lumbar spondylosis with Facet Arthropathy without myelopathy . POSTOPERATIVE DIAGNOSIS: 1- Lumbar spondylosis with Facet Arthropathy without myelopathy . PROCEDURE: Diagnostic bilateral L3 , L4 , and L5 medial branch block under fluoroscopy guidance(fluoroscopy images available in the radiology Department ) ( To target the facet joint between L4-5 , and L5-S1 ). # 2nd ANESTHESIA:, Moderate sedation with Versed 3 mg and fentanyl 100 g, and local infiltration with ropivacaine 0.5% 6 mL EBL: Minimal COMPLICATION: None PROCEDURE INDICATION: Chronic low back pain secondary to Facet arthropathy unresponsive to conservative treatment. PROCEDURE DESCRIPTION: the patient was seen and identified in the preop holding area , risks and benefits and possible complications of the procedure and alternative were discussed with the patient, and the patient agreed to proceed with the procedure and signed the consent and vital signs monitored during the procedure and fluoroscopy was used to maximize the benefit and accuracy of the needle placement, and sedation was given to decrease patient anxiety, patient was taken to the procedure room and placed in prone position vital signs monitored in the back prepped with chlorhexidine X3 then under strict sterile technique using a right oblique fluoroscopy ,the junction of the transverse process and the superior articulating process of the right L3 , L4 , and L5 vertebra which corresponding to the fluoroscopy image of the eye of the Clarence dog on the block side for the medial branches and subsequently , after local infiltration of skin and subcu tissuies with Ropivacaine 0.5 % , one mL at each level ,then 22-gauge Quincke-type needles , 3 needle was used , each one of them placed at the junction of the base of the transverse process and the superior articular process at the appropriate level, and the needle was advanced until the periosteum contacted, needle placement confirmed with AP oblique and lateral view and after appropriate needle placement confirmed, and after negative aspiration for heme and CSF and there was no paresthesia 1-1/2 mL of Ropivacaine 0.5% mixed with 20 mg Depo-Medrol , then half mL injected at each level after negative aspiration the needle subsequently removed and the same procedure repeated for the left side at left side at L3 , L4 and L5 levels. At the end of the procedure and the needles removed and a bandage applied after the skin was cleaned the cleaning solution patient taken to recovery room in stable condition and monitors in the recovery room for 20-30 minutes and discharged home in stable condition after discharge criteria met and patient will follow up with the pain clinic in 2-4 weeks
[2020-08-12 09:03] VITALS: RESP 17
[2020-08-12 09:11] VITALS: BP 110/62; PULSE 64
--- NOTE | 2020-08-12 09:12 | FL ---
EXAMINATION TYPE: FL guided pain mgmt statistic DATE OF EXAM: 08/12/2020 FLUOROSCOPY Fluoroscopy time of 8 seconds was used during bilateral lumbar facet block. 4 image/s document/s the procedure.
== END ==
LOC: ORPAIN 07:10
PROVIDERS: ATTEND Specialist
DX: G89.29 Other chronic pain (principal); M47.816 Spondylosis without myelopathy or radiculopathy, lumbar region; Z88.0 Allergy status to penicillin
CPT/HCPCS: 64493; 64494; J2250; J1030; J3010; J2795; 99152

== ENCOUNTER → 2020-08-31 | Outpatient (CLI) | payer OTHER ==
[2020-08-31 09:41] VITALS: BP 128/82; PULSE 59; RESP 18; TEMP 98.6
--- NOTE | 2020-08-31 10:12 | P.PN ---
Subjective Progress Note Date: 08/31/20 This is a follow-up visit for this 49 years old male with a chronic history of severe neck pain and low back pain, diagnosed with cervical degenerative disc disease and cervical spondylosis with cervical facet arthropathy without myelopathy, last year we have done cervical epidural steroid injection he had no benefit from it later on we did diagnostic medial branch block cervical area, and then we did not proceed with RFA because there was Covid 19 ,and clinic was closed for several months, patient reported that he got good results after the block but currently is complaining of severe low back pain, she is his main problem now , the pain in the low back area. He did to the groin bilaterally, diagnosed with lumbar degenerative disc disease and lumbar spondylosis with lumbar facet arthropathy recently we did diagnostic medial branch block lumbar area patient reported that he had minimal benefit from it, he denies any motor or sensory deficit, he denies any fever or night sweats, is able to ambulate without difficulty, and the pain interfering with the quality of life and activity of daily livings Objective - Vital Signs Vital signs: Vital Signs Temp 98.6 F 08/31/20 09:33 Pulse 59 L 08/31/20 09:33 Resp 18 08/31/20 09:33 BP 128/82 08/31/20 09:33 Pulse Ox 97 08/31/20 09:33 - Exam Physical Examinations : -Constitutiona : Cooperative , not in acute distress . -HEENT : nech : supple , no Lymphadenopathy , normal thyroid size . : eyes : no ptosis , no icterus, no photophobia . - neurologic : Cranial nerve II to XII intact , no focal neurological deffecit . -psychatric : alert , oriented X 3 , appropriate affect , intact judgment and insight . -Lymphatic : no Lymphadenopathy . - musculoskeltal : Cervical Spine motor stregnth in the deltoid and biceps, normal right side , normal Left side motor stregnth biceps and the wrist extensors normal right side ,normal left side . motor stregnth in the triceps muscle . normal Right side , normal Left side deep tendon reflexes normal at the biceps , normal at Brachioradialis , normal at triceps. cervical facet loading test: Positive Bilaterally Spurling test= positive Right , positive left. Neck distraction test= positive Right , positive left. Ruddy sign= positive right, positive left . Lumber spine moter stegnth lower extremities ,thigh and legs 5/5 Right side , 5/5 Left side deep tendon reflexes : normal Knee Jerk , normal ankle Jerk lumber facet Loading Test =positive Right , posiutive Left Range of motion of the lumbar spine Flexion 30 degrees, extension 10 degrees strait leg raising test = positive at degree Fabere test= positive Right , and positive LT . Sever tenderness over the Sacroiliac joint on the Right , and Left sides . Assessment and Plan Plan: Assessment and plan=1-cervical spondylosis with cervical facet arthropathy without myelopathy 2-cervical degenerative disc disease. 3-lumbar spondylosis with lumbar facet arthropathy. 4-lumbar degenerative disc disease. Patient had no benefit from medial branch block lumbar area, Patient could benefit from lumbar epidural steroid injection at L5-S1 under fluoroscopy guidance - PQRS measures = - Patient's medications are documented in the chart. -Tobacco use is negative and counseling.Given. -Patient's has not received pneumococcal vaccine. -Advanced care planning discussed, patient not eligible. -Opiate contract not signed. -Pain positive and follow-up visit/procedure is scheduled. -Patient's blood pressure measured [ 128/82 ] , and documented in the record ,and patient will follow up with the primary care. -Patient's weight was measured and body mass index [25 ] within the normal limits and counseling was done. and patient instructed to follow-up with the primary care physician. -Patient was not identified as an unhealthy alcohol user Time with Patient: Less than 30
== END | disposition home or self-care (01) ==
LOC: PNWHC3 09:25
PROVIDERS: ATTEND Specialist
DX: M50.30 Other cervical disc degeneration, unspecified cervical region (principal); M51.36 Other intervertebral disc degeneration, lumbar region; M47.816 Spondylosis without myelopathy or radiculopathy, lumbar region; M47.812 Spondylosis without myelopathy or radiculopathy, cervical region
CPT/HCPCS: 99211

== ENCOUNTER 2020-09-20 09:22 | Day surgery (SDC) | payer OTHER ==
[2020-09-15 09:32] VITALS: BMI 25.0
[~2020-09-20 09:22] MED LIST changes: -LIDOCAINE 1% (10MG/ML) FOR IV START INTRADERMA ONE; -MIDAZOLAM 2 MG/2 ML VIAL ONE; -ROPIVACAINE 5MG/ML 20ML VIAL ONE; -fentaNYL (PF) 50 MCG/ML 2 ML AMP ONE; -methylPREDNISolone ACETATE 40 MG/ML 1 ML VIAL ONE
[2020-09-20 11:05] VITALS: RESP 16; TEMP 97.7
[2020-09-20] MEDS ORDERED: IOPAMIDOL M200 10 ML VIAL ONE (11:28)
[2020-09-20] MEDS ORDERED: methylPREDNISolone ACETATE 40 MG/ML 1 ML VIAL ONE (11:28)
[2020-09-20] MEDS ORDERED: MIDAZOLAM 2 MG/2 ML VIAL ONE (11:28)
[2020-09-20] MEDS ORDERED: fentaNYL (PF) 50 MCG/ML 2 ML AMP ONE (11:28)
--- NOTE | 2020-09-20 11:36 | P.PCN ---
Date of Procedure: 09/20/20 Procedure(s) Performed: PREOPERATIVE DIAGNOSIS: 1- Lumbar Degenerative Disc Diseases 2-Lumbar spondylosis with Facet arthropathy without myelopathy POSTOPERATIVE DIAGNOSIS: Same as preop diagnosis. PROCEDURE 1. Lumbar epidural steroid injection under fluoroscopic guidance at the L5-S1 level. (Fluoroscopy imaging was available in radiology department) 2. Lumbar epidurogram. ANESTHESIA: Local with 1% lidocaine 3 ml and , moderate sedation with intravenous Versed 2 mg ,and fentanyle 100 Mcg EBL: Minimal PROCEDURE INDICATION: The patient with low back pain and radiculitis symptoms unresponsive to conservative treatment. Fluoroscopy was used to optimize visuali zation of the needle placement and to maximize safety. PROCEDURE DESCRIPTION / TECHNIQUE: The patient was seen and identified in the preoperative area. Risks, benefits, complications including but not limited to infections ,bleeding ,allergic reaction to the medications ,nerve damage and not complete pain releife , and alternatives were discussed with the patient. The patient agreed to proceed with the procedure and signed the consent. IV was started, and vital signs were stable. Patient was taken to the OR and time out was completed. The patient was placed in the prone position on procedure table and a pillow was placed under the abdomen to reduce lumbar lordosis. The lumbosacral area was prepped and draped in the usual sterile fashion.ere closely monitored during the procedure. Conscious sedation was used during the procedure to decrease patients anxiety. Vital signs was monitered during the entire procedure. Using anterior-posterior fluoroscopy, the L5-S1 interlaminar space was identified and the skin over this site was marked and then infiltrated with 1% lidocaine subcutaneously. Subsequently, a 20-gauge Tuohy epidural needle was inserted and advanced toward the epidural space using the ``Loss of resistance technique and guided by AP and lateral fluoroscopy. The correct needle position in the epidural space was verified with the injection of 2 mL of the water kelsey uble contrast dye Isovue 200 contrast and observing an excellent epidurogram with the epidural spread of the dye, after negative aspiration for blood and CSF and in the absence of paresthesias. Again after negative aspiration, a 6 ml mixture containing 80 mg of Depo-medrol , and 2 ml of preservative free Normal Saline, and 2 ml of preservative free lidocaine 1% solution was injected and a washout of epidurogram was seen. Needle was withdrawn intact, skin was cleansed, and bandages were applied. COMPLICATIONS: None DISPOSITION / PLANS: The patient was placed in a supine position and transferred to the recovery area in a stable condition for observation. There was no evidence of lower extremity motor or sensory deficit after the procedure. Patient was discharged from the recovery room after meeting discharge criteria. Home discharge instructions were given to the patient by the staff. The patient was reexamined prior to discharge. The patient will schedule a follow up in the clinic in 2-4 weeks.
[2020-09-20] MEDS ORDERED: IV FLUID CONTINUATION 1,000 ML IV ONE (11:41)
--- NOTE | 2020-09-20 11:48 | FL ---
EXAMINATION TYPE: FL guided pain mgmt statistic DATE OF EXAM: 09/20/2020 CLINICAL HISTORY: Low back pain. TECHNIQUE: Fluoroscopy. COMPARISON: None. FINDINGS: Fluoroscopic guidance was provided during pain relief procedure performed by Dr. Bradley . A total of 1 seconds of fluoroscopic time was utilized during the procedure and 1 spot images are acquired. Single image acquired shows needle localization at L5 level with contrast injection. IMPRESSION: As Above.
[2020-09-20 12:08] VITALS: BP 115/80; PULSE 55
== END 2020-09-20 12:14 | disposition home or self-care (01) ==
LOC: ORPAIN 09:22
PROVIDERS: ATTEND Specialist
DX: M51.16 Intervertebral disc disorders with radiculopathy, lumbar region (principal); M47.26 Other spondylosis with radiculopathy, lumbar region; Z88.0 Allergy status to penicillin
CPT/HCPCS: 62323; J2250; J1030; J3010; Q9966

== ENCOUNTER 2020-10-11 09:02 | Day surgery (SDC) | payer OTHER ==
[2020-10-10 09:17] VITALS: BMI 27.6
[2020-10-11 09:20] VITALS: TEMP 97.6
[2020-10-11] MEDS ORDERED: LACTATED RINGERS 1,000 ML IV ONE (09:24)
[2020-10-11] MEDS ORDERED: MIDAZOLAM 2 MG/2 ML VIAL ONE (09:30)
[2020-10-11] MEDS ORDERED: methylPREDNISolone ACETATE 40 MG/ML 1 ML VIAL ONE (09:30)
[2020-10-11] MEDS ORDERED: IOPAMIDOL M200 10 ML VIAL ONE (09:30)
--- NOTE | 2020-10-11 09:44 | P.PCN ---
Date of Procedure: 10/11/20 Preoperative Diagnosis: Lumbar spondylosis, and lumbar radiculopathy Postoperative Diagnosis: Lumbar spondylosis, and lumbar radiculopathy Procedure(s) Performed: L5-S1 epidural steroid injection under fluoroscopy guidance2/3 Anesthesia: MAC Surgeon: Alpesh Trujillo Estimated Blood Loss (ml): 0 IV fluids (ml): 100 Urine output (ml): 0 Pathology: none sent Condition: stable Disposition: PACU Description of Procedure: Fluoroscopic image: saved to electronic medical records PROCEDURE INDICATION: The patient had history of Lumbar degenerative disc disease and Lumbar radiculopathy. Failed to conservative therapy. Presented for epidural steroid injection. PROCEDURE DESCRIPTION: The patient was seen and identified in the preoperative area. Risks, benefits, complications, and alternatives were discussed with the patient. The patient agreed to proceed with the procedure and signed the consent. IV was started, and vital signs were stable. Patient was taken to the procedure area, and time out was completed. The patient was placed in the prone position on procedure table and a pillow was placed under the abdomen to reduce lumbar lordosis. The lumbosacral area was prepped and draped in the usual sterile fashion. Critical pause was taken. Vital signs were closely monitored during the procedure. Using anterior-posterior fluoroscopy, the L5 - S1 interlaminar space was identified, and skin and deeper tissues were localized with 1% lidocaine. Using anterior-posterior fluoroscopy, lateral fluoroscopy, and [id number] technique, a 20 gauge 3.5 Tuohy epidural needle entered the epidural space. After negative aspiration of CSF and blood with no paresthesias, 1 ml of [id number] contrast dye was injected and an excellent epidurogram was seen. Again after negative aspiration of CSF and blood with no paresthesias, 10 mL of block solution was injected into the epidural space. Block solution contained 40 mg of Depo-Medrol, and 9 mL of preservative-free normal saline. Needle was withdrawn intact, skin was cleansed, and bandages were applied. COMPLICATIONS: None. DISPOSITION / PLANS: The patient was placed in a supine position and transferred to the recovery area in a stable condition for observation. Patient was discharged from the recovery room after meeting discharge criteria. Home discharge instructions given to the patient by the staff. The patient was reexamined prior to discharge. The patient will schedule a follow up in the clinic in 4 weeks. Note: If this procedure not hopeful plan to consider for lumbar medial branch block in future.
[2020-10-11] MEDS ORDERED: LACTATED RINGERS 1,000 ML IV SCH (09:45)
[2020-10-11] MEDS ORDERED: IV FLUID CONTINUATION 1,000 ML IV ONE (09:46)
[2020-10-11 09:48] VITALS: RESP 16
[2020-10-11 10:00] VITALS: BP 118/77; PULSE 58
--- NOTE | 2020-10-11 13:08 | FL ---
Fluoroscopy INDICATION: Pain FINDINGS: Fluoroscopy time: 4 seconds. Images obtained: 2. IMPRESSIONS: 1. Documentation of fluoroscopy.
== END 2020-10-11 10:10 | disposition home or self-care (01) ==
LOC: ORPAIN 09:02
DX: M47.26 Other spondylosis with radiculopathy, lumbar region (principal); M51.16 Intervertebral disc disorders with radiculopathy, lumbar region; Z88.0 Allergy status to penicillin; Z98.890 Other specified postprocedural states; Z89.021 Acquired absence of right finger(s)
CPT/HCPCS: 62323; J2250; J1030; Q9966

== ENCOUNTER → 2020-11-07 | Outpatient (CLI) | payer OTHER ==
--- NOTE | 2020-11-07 10:43 | P.PN ---
Subjective Progress Note Date: 11/07/20 This is a follow-up visit for this 50 years old male with a chronic history of severe neck pain and low back pain, diagnosed with cervical degenerative disc disease and cervical spondylosis with cervical facet arthropathy without myelopathy, last year we have done cervical epidural steroid injection he had no benefit from it later on we did diagnostic medial branch block cervical area, and then we did not proceed with RFA because there was Covid 19 ,and clinic was closed for several months, patient reported that he got good results after the block but currently is complaining of severe low back pain, she is his main problem now , the pain in the low back area. He did to the groin bilaterally, he is diagnosed with lumbar degenerative disc disease and lumbar spondylosis with lumbar facet arthropathy recently we did diagnostic medial branch block lumbar area patient reported that he had minimal benefit from it, and later on we did lumbar epidural steroid injections 2, and currently he reported that his pain mainly in the low back area with radiation to the buttock bilaterally, he denies any motor or sensory deficit, he denies any fever or night sweats, is able to ambulate without difficulty, and the pain interfering with the quality of life and activity of daily livings Also patient complained of headache, not positional, etc. increased with any activity, and increased with the neck movement Physical Examinations : -Constitutiona : Cooperative , not in acute distress . -HEENT : nech : supple , no Lymphadenopathy , normal thyroid size . : eyes : no ptosis , no icterus, no photophobia . - neurologic : Cranial nerve II to XII intact , no focal neurological deffecit . -psychatric : alert , oriented X 3 , appropriate affect , intact judgment and insight . -Lymphatic : no Lymphadenopathy . -Abdomen : Tenderness over the right inguinal area - musculoskeltal : Cervical Spine motor stregnth in the deltoid and biceps, normal right side , normal Left side motor stregnth biceps and the wrist extensors normal right side ,normal left side . motor stregnth in the triceps muscle . normal Right side , normal Left side deep tendon reflexes normal at the biceps , normal at Brachioradialis , normal at triceps. cervical facet loading test: Positive Bilaterally Spurling test= positive Right , positive left. Neck distraction test= positive Right , positive left. Ruddy sign= positive right, positive left . Lumber spine moter stegnth lower extremities ,thigh and legs 5/5 Right side , 5/5 Left side deep tendon reflexes : normal Knee Jerk , normal ankle Jerk lumber facet Loading Test =positive Right , posiutive Left Range of motion of the lumbar spine Flexion 30 degrees, extension 10 degrees strait leg raising test = positive at 45 degree Fabere test= positive Right , and positive LT . Sever tenderness over the Sacroiliac joint on the Right , and Left sides . Assessment and Plan Plan: Assessment and plan=1-cervical spondylosis with cervical facet arthropathy without myelopathy 2-cervical degenerative disc disease. 3-lumbar spondylosis with lumbar facet arthropathy. 4-lumbar degenerative disc disease. 5-bilateral sacroiliitis Patient had no benefit from medial branch block lumbar area, Patient continued to have severe low back pain after lumbar epidural steroid injections x2 Patient could benefit from bilateral sacroiliac joint steroid injection Patient will be referred for neurosurgical evaluation for possible right inguinal hernia Patient given prescription for Fioricet one to 2 tablets when necessary ( headaches dispense 60 ) - PQRS measures = - Patient's medications are documented in the chart. -Tobacco use is negative and counseling.Given. -Patient's has not received pneumococcal vaccine. -Advanced care planning discussed, patient not eligible. -Opiate contract not signed. -Pain positive and follow-up visit/procedure is scheduled. -Patient's blood pressure measured [ 104/68 ] , and documented in the record ,and patient will follow up with the primary care. -Patient's weight was measured and body mass index [28 ] above the normal limits and counseling was done. and patient instructed to follow-up with the primary care physician. -Patient was not identified as an unhealthy alcohol user Objective - Vital Signs Vital signs: Vital Signs Temp 97.9 F 11/07/20 10:06 Pulse 59 L 11/07/20 10:06 Resp 16 11/07/20 10:06 BP 104/68 11/07/20 10:06 Pulse Ox 97 11/07/20 10:06
== END ==
CPT/HCPCS: 99211

== ENCOUNTER 2020-11-29 09:24 | Day surgery (SDC) | payer OTHER ==
[2020-11-24 15:13] VITALS: BMI 28.1
[2020-11-29 09:39] VITALS: TEMP 98
[2020-11-29] MEDS ORDERED: LACTATED RINGERS 1,000 ML IV ONE (09:44)
[2020-11-29] MEDS ORDERED: ROPIVACAINE 5MG/ML 20ML VIAL ONE (09:46)
[2020-11-29] MEDS ORDERED: methylPREDNISolone ACETATE 40 MG/ML 1 ML VIAL ONE (09:46)
[2020-11-29] MEDS ORDERED: MIDAZOLAM 2 MG/2 ML VIAL ONE (09:46)
[2020-11-29] MEDS ORDERED: fentaNYL (PF) 50 MCG/ML 2 ML AMP ONE (09:46)
--- NOTE | 2020-11-29 10:05 | P.PCN ---
Date of Procedure: 11/29/20 Procedure(s) Performed: Procedure= bilateral sacroiliac joints steroid injection under fluoroscopy guidance (fluoroscopy image stored on file in the radiology Department ) Preoperative diagnosis= 1-Bilateral sacroiliitis 2-lumbar degenerative disc disease 3-lumbar spondylosis with facet arthropathy Postoperative diagnosis=Same as preop Diagnosis . Complication = none Condition= stable Anesthesia= moderate sedation with intravenous Versed 2 mg , and fentanyl 100 micrograms . Indication for the procedure= patient complaining of low back pain , examination was positive for severe tenderness over the sacroiliac joints bilaterally and patient diagnosed with sacroiliitis, for this reason he was good candidate for sacroiliac joint steroid injection. Description of the procedure= procedure risk and benefits discussed with the patient, including but not limited, risk of infection and bleeding, and ALLERGIC reaction to the medication and not complete pain relief and patient agreed with the preceding patient taken to the operating room, placed in prone position or standard monitors applied to the patient then after induction of anesthesia back prepped with chlorhexidine 3 times , Then under strict sterile technique, first I did the right sacroiliac joint the which was identified under fluoroscopy guidance been local infiltration of the skin and subcu interstitial with lidocaine 1% then 22-gauge Quincke Needle advanced slowly under fluoroscopy and placed in the right sacroiliac joint needle placement confirmed with AP and oblique and lateral view and after appropriate needle placement confirmed and after negative aspiration, or heme , then Ropivacaine 0.5% 4 mL, and 40 mg of Depo-Medrol mixed together and injected in the right sacroiliac joint after negative aspiration patient tolerated the procedure well without any complication. Then the left sacroiliac joint steroid injection done under strict sterile technique local infiltration of the skin and subcu interstitial at the location of the left sacroiliac joint then a 22-gauge Quincke Needle advanced slowly under fluoroscopy time placed in the left sacroiliac joint, needle placement confirmed with AP and oblique and lateral view then after appropriate needle placement confirmed and after negative aspiration 0.5% Marcaine 4 mL and 40 mg of Depo-Medrol injected in the left sacroiliac joint after negative aspiration patient tolerated the procedure well that any complications and she will follow up in clinic 3 weeks
[2020-11-29] MEDS ORDERED: IV FLUID CONTINUATION 600 ML IV ONE (10:11)
[2020-11-29 10:17] VITALS: RESP 16
--- NOTE | 2020-11-29 10:19 | FL ---
Fluoroscopy INDICATION: Pain FINDINGS: Fluoroscopy time: 6 seconds. Images obtained: 2. IMPRESSIONS: 1. Documentation of fluoroscopy.
[2020-11-29 10:37] VITALS: BP 115/74; PULSE 55
== END 2020-11-29 10:41 | disposition home or self-care (01) ==
LOC: ORPAIN 09:24
PROVIDERS: ATTEND Specialist
DX: M47.816 Spondylosis without myelopathy or radiculopathy, lumbar region (principal); M46.1 Sacroiliitis, not elsewhere classified; M51.36 Other intervertebral disc degeneration, lumbar region; Z88.0 Allergy status to penicillin
CPT/HCPCS: J2250; J1030; J3010; J2795; G0260; 99152

== ENCOUNTER 2020-12-20 11:39 | Day surgery (SDC) | payer OTHER ==
[2020-12-19 09:57] VITALS: BMI 28.1
[2020-12-20 11:51] VITALS: TEMP 98
[2020-12-20] MEDS ORDERED: fentaNYL (PF) 50 MCG/ML 2 ML AMP ONE (12:21)
[2020-12-20] MEDS ORDERED: ROPIVACAINE 5MG/ML 20ML VIAL ONE (12:21)
[2020-12-20] MEDS ORDERED: MIDAZOLAM 2 MG/2 ML VIAL ONE (12:21)
[2020-12-20] MEDS ORDERED: methylPREDNISolone ACETATE 40 MG/ML 1 ML VIAL ONE (12:21)
--- NOTE | 2020-12-20 12:35 | P.PCN ---
Date of Procedure: 12/20/20 Procedure(s) Performed: Procedure= bilateral sacroiliac joints steroid injection under fluoroscopy guidance (fluoroscopy image stored on file in the radiology Department ) Preoperative diagnosis= 1-Bilateral sacroiliitis 2-lumbar degenerative disc disease 3-lumbar spondylosis with facet arthropathy Postoperative diagnosis=Same as preop Diagnosis . Complication = none Condition= stable Anesthesia= moderate sedation with intravenous Versed 2 mg , and fentanyl 100 micrograms . Indication for the procedure= patient complaining of low back pain , examination was positive for severe tenderness over the sacroiliac joints bilaterally and patient diagnosed with sacroiliitis, for this reason he was good candidate for sacroiliac joint steroid injection. Description of the procedure= procedure risk and benefits discussed with the patient, including but not limited, risk of infection and bleeding, and ALLERGIC reaction to the medication and not complete pain relief and patient agreed with the preceding patient taken to the operating room, placed in prone position or standard monitors applied to the patient then after induction of anesthesia back prepped with chlorhexidine 3 times , Then under strict sterile technique, first I did the right sacroiliac joint the which was identified under fluoroscopy guidance been local infiltration of the skin and subcu interstitial with lidocaine 1% then 22-gauge Quincke Needle advanced slowly under fluoroscopy and placed in the right sacroiliac joint needle placement confirmed with AP and oblique and lateral view and after appropriate needle placement confirmed and after negative aspiration, or heme , then Ropivacaine 0.5% 4 mL, and 40 mg of Depo-Medrol mixed together and injected in the right sacroiliac joint after negative aspiration patient tolerated the procedure well without any complication. Then the left sacroiliac joint steroid injection done under strict sterile technique local infiltration of the skin and subcu interstitial at the location of the left sacroiliac joint then a 22-gauge Quincke Needle advanced slowly under fluoroscopy time placed in the left sacroiliac joint, needle placement confirmed with AP and oblique and lateral view then after appropriate needle placement confirmed and after negative aspiration 0.5% Ropivacaine 4 mL and 40 mg of Depo-Medrol injected in the left sacroiliac joint after negative aspiration patient tolerated the procedure well that any complications and she will follow up in clinic 3 weeks
[2020-12-20] MEDS ORDERED: IV FLUID CONTINUATION 1,000 ML IV ONE (12:38)
[2020-12-20 12:53] VITALS: PULSE 60; RESP 18
[2020-12-20 12:54] VITALS: BP 127/79
--- NOTE | 2020-12-20 13:15 | FL ---
Fluoroscopy HISTORY: Pain 26 seconds fluoroscopy time supplied to the referring clinician. 2 intraoperative C-arm images docum ent the procedure. See dictated report from anesthesia.
== END 2020-12-20 13:13 | disposition home or self-care (01) ==
LOC: ORPAIN 11:39
PROVIDERS: ATTEND Specialist
DX: M47.816 Spondylosis without myelopathy or radiculopathy, lumbar region (principal); M46.1 Sacroiliitis, not elsewhere classified; M51.36 Other intervertebral disc degeneration, lumbar region; Z88.0 Allergy status to penicillin
CPT/HCPCS: J2250; J1030; J3010; J2795; G0260

== ENCOUNTER → 2021-01-09 | Outpatient (CLI) | payer OTHER ==
--- NOTE | 2021-01-09 10:39 | P.PN ---
Subjective Progress Note Date: 01/09/21 This is a follow-up visit for this 50 years old male with a chronic history of severe neck pain ,and low back pain, diagnosed with cervical degenerative disc disease and cervical spondylosis with cervical facet arthropathy without myelopathy, last year we have done cervical epidural steroid injection he had no benefit from it later on we did diagnostic medial branch block cervical area, and then we did not proceed with RFA because there was Covid 19 ,and clinic was closed for several months, patient reported that he got good results after the block but currently is complaining of severe low back pain, she is his main problem now , the pain in the low back area. with radiations to the groin bilaterally, he is diagnosed with lumbar degenerative disc disease and lumbar spondylosis with lumbar facet arthropathy , previously we did diagnostic medial branch block lumbar area patient reported that he had minimal benefit from it, and later on we did lumbar epidural steroid injections 2, he had minimal benefit from it , and recently we did bilateral sacroiliac joint steroid injection , he reported that he had no benefit from it , he denies any motor or sensory deficit, he denies any fever or night sweats, is able to ambulate without difficulty, and the pain interfering with the quality of life and activity of daily livings, currently he is doing physical therapy and chiropractics with minimal benefit, patient had a new MRI of the lumbar spine which showed that small bulging disc at L5-S1 and he had lumbar spondylosis with lumbar facet arthropathy Physical Examinations : -Constitutiona : Cooperative , not in acute distress . -HEENT : nech : supple , no Lymphadenopathy , normal thyroid size . : eyes : no ptosis , no icterus, no photophobia . - neurologic : Cranial nerve II to XII intact , no focal neurological deffecit . -psychatric : alert , oriented X 3 , appropriate affect , intact judgment and insight . -Lymphatic : no Lymphadenopathy . -Abdomen : Tenderness over the right inguinal area - musculoskeltal : Cervical Spine motor stregnth in the deltoid and biceps, normal right side , normal Left side motor stregnth biceps and the wrist extensors normal right side ,normal left side . motor stregnth in the triceps muscle . normal Right side , normal Left side deep tendon reflexes normal at the biceps , normal at Brachioradialis , normal at triceps. cervical facet loading test: Positive Bilaterally Spurling test= positive Right , positive left. Neck distraction test= positive Right , positive left. Ruddy sign= positive right, positive left . Lumber spine moter stegnth lower extremities ,thigh and legs 5/5 Right side , 5/5 Left side deep tendon reflexes : normal Knee Jerk , normal ankle Jerk lumber facet Loading Test =positive Right , posiutive Left Range of motion of the lumbar spine Flexion 30 degrees, extension 10 degrees strait leg raising test = positive at 45 degree Fabere test= positive Right , and positive LT . Sever tenderness over the Sacroiliac joint on the Right , and Left sides . Assessment and plan=1-cervical spondylosis with cervical facet arthropathy without myelopathy 2-cervical degenerative disc disease. 3-lumbar spondylosis with lumbar facet arthropathy. 4-lumbar degenerative disc disease. 5-bilateral sacroiliitis Patient had no benefit from medial branch block l umbar area, Patient had no benefit from bilateral sacroiliac joint steroid injection Patient continued to have severe low back pain after lumbar epidural steroid injections x2 Patient given prescription for Ultram 50 mg every 8 hours dispense 90 with no refills patients given prescription for Mobic 7.5 mg by mouth daily dispense 30 with one refill Patient will follow up with his primary care for medication refill in the future [facility] will follow up with Dr. Barron, for evaluation regarding his new MRI - PQRS measures = - Patient's medications are documented in the chart. -Tobacco use is negative and counseling.Given. -Patient's has not received pneumococcal vaccine. -Advanced care planning discussed, patient not eligible. -Opiate contract not signed. -Pain positive and follow-up visit/procedure is scheduled. -Patient's blood pressure measured [ 111/67 ] , and documented in the record ,and patient will follow up with the primary care. -Patient's weight was measured and body mass index [27.4] above the normal limits and counseling was done. and patient instructed to follow-up with the primary care physician. -Patient was not identified as an unhealthy alcohol user Objective - Vital Signs Vital signs: Vital Signs Temp 98.0 F 01/09/21 09:38 Pulse 57 L 01/09/21 09:38 Resp 18 01/09/21 09:38 BP 111/67 01/09/21 09:38 Pulse Ox 96 01/09/21 09:38
== END ==
CPT/HCPCS: 99211